=== PATIENT | female | born 1990 | race African-American/Black ===

== ENCOUNTER 2021-07-26 20:34 | Emergency (ER) | payer OTHER ==
[~2021-07-26] VITALS: Ht 175.3 cm; Wt 92.0 kg
[2021-07-26] MEDS: IBUPROFEN 600MG TABLET PO ONE ×2 (23:34→23:38)
[2021-07-26 23:38] VITALS: BP 134/88
== END 2021-07-27 01:10 ==
LOC: ER 20:34
DX: S61.214A Laceration without foreign body of right ring finger without damage to nail, initial encounter (principal); S93.401A Sprain of unspecified ligament of right ankle, initial encounter; W25.XXXA Contact with sharp glass, initial encounter; W01.0XXA Fall on same level from slipping, tripping and stumbling without subsequent striking against object, initial encounter; Y93.89 Activity, other specified; Y92.89 Other specified places as the place of occurrence of the external cause
CPT/HCPCS: 73120; 73600; 73620; 99284

== ENCOUNTER 2023-02-16 21:28 | Emergency (ER) | payer MEDICAID ==
[~2023-02-16] VITALS: Ht 165.1 cm; Wt 101.4 kg
[~2023-02-16 21:28] MED LIST: PROT40 MT; THIA100T88 MT
[2023-02-16 22:23] VITALS: TEMP 98.5; O2SAT 99
[2023-02-16 23:02] LABS: CLARITY URINE CLEAR (CLEAR); COLOR URINE DARK YELLOW (YELLOW); KETONES URINE 1+ (NEGATIVE); LEUKOCYTE ESTERASE URINE TRACE (NEGATIVE); NITRITE URINE NEGATIVE (NEGATIVE); OCCULT BLOOD URINE 2+ (NEGATIVE); PH URINE 6.5 (4.5-8.0); PROTEIN URINE 2+ (NEGATIVE)
[2023-02-17 08:45] VITALS: BP 144/88; PULSE 99; RESP 16
[2023-02-17] MEDS ORDERED: HYDROCODONE/ACETAMINOPHEN 5/325MG TABLET PO ONE (08:45)
[2023-02-17 09:23] LABS: BASOPHILS % 0.4 % (0.0-2.0); EOSINOPHILS % 1.6 % (0.0-5.0); HEMATOCRIT. 29.2 % (36.0-48.0); HEMOGLOBIN. 9.8 g/dL (12.0-16.0); LYMPHOCYTES % 9.4 % (20.0-50.0); MEAN CORPUSCULAR HEMOGLOBIN 30.5 pg (28.0-32.0); MEAN CORPUSCULAR VOLUME 90.4 fL (81.0-99.0); MEAN PLATELET VOLUME 7.4 fl (7.4-10.4); MONOCYTES % 9.1 % (2.0-8.0); NEUTROPHILS % 79.5 % (40.0-76.0); PLATELET 430 x1000/uL (130-400); RED BLOOD CELL COUNT 3.23 mill/uL (4.2-5.4); RED CELL DISTRIBUTION WIDTH 14.4 % (11.6-14.6)
[2023-02-17 09:31] LABS: CHLORIDE 107 mEq/L (98-107)
[2023-02-17 09:35] LABS: HCG SCREEN NEGATIVE
[2023-02-17] MEDS ORDERED: IOHEXOL-300 100 ML BOTTLE ONE (11:01)
[2023-02-17] MEDS ORDERED: TRAM50TA3 MT ×2 (11:50)
[2023-02-21] MEDS ORDERED: TRAM50TA3 MT (16:13)
== END 2023-02-17 13:10 | disposition home or self-care (01) ==
LOC: ER 21:28
DX: R10.30 Lower abdominal pain, unspecified (principal); K66.1 Hemoperitoneum
CPT/HCPCS: 36415; 74177; 80053; 81003; 81025; 83690; 84703; 85025; 99285; Q9967; Z7610